=== PATIENT | female | born 1980 | race Caucasian/White ===

== ENCOUNTER 2016-11-03 13:28 | Emergency (ER) | payer BC, OTHER ==
--- NOTE | 2016-11-03 14:33 | ED ---
Upper Extremity HPI - General Chief Complaint: Extremity Injury, Upper Stated Complaint: Fall/Elbow pain Time Seen by Provider: 11/03/16 13:49 Source: patient, RN notes reviewed, old records reviewed Mode of arrival: ambulatory Limitations: no limitations - History of Present Illness Initial Comments: Physical 36-year-old female presents emergency room from a chief complaint of right elbow pain. Patient reports that she was dancing last night at a wedding and slipped and fell and hit her elbow on the dance floor. Patient states that since then she's had pain with pronation and supination. States that she's noticed some swelling. Patient reports that she is right-handed. Denies any shoulder upper arm pain. Denies any wrist or hand pain. Patient denies any peripheral paresthesias. Patient denies any recent fever, chills, shortness of breath, chest pain, back pain, abdominal pain, nausea vomiting, numbness or tingling, dysuria or hematuria, constipation or diarrhea, headaches or visual changes, or any other current symptoms - Related Data Home Medications Medication Instructions Recorded Confirmed Ferrous Sulfate [Feosol] 325 mg PO HS 11/03/16 11/03/16 Norethindrone [Taisha] 0.35 mg PO DAILY 11/03/16 11/03/16 Mnp-Fren-Lpyar Acid 1 cap PO HS 11/03/16 11/03/16 [-U Capsule (formulary)] Previous Rx's Medication Instructions Recorded Ibuprofen [Motrin] 600 mg PO Q8HR PRN #20 tab 11/03/16 traMADol HCL [Ultram] 50 mg PO Q6HR PRN #20 tab 11/03/16 Allergies Allergy/AdvReac Type Severity Reaction Status Date / Time No Known Allergies Allergy Verified 11/03/16 14:32 Review of Systems ROS Statement: Those systems with pertinent positive or pertinent negative responses have been documented in the HPI. ROS Other: All systems not noted in ROS Statement are negative. Past Medical History Past Medical History: No Reported History History of Any Multi-Drug Resistant Organisms: None Reported Past Surgical History: No Surgical Hx Reported Past Psychological History: No Psychological Hx Reported Smoking Status: Never smoker Past Alcohol Use History: Occasional Past Drug Use History: None Reported General Exam - General Exam Comments Initial Comments: Pleasant 36-year-old female. No acute distress. Limitations: no limitations General appearance: alert, in no apparent distress Head exam: Present: atraumatic, normocephalic, normal inspection Eye exam: Present: normal appearance, PERRL, EOMI. Absent: scleral icterus, conjunctival injection, periorbital swelling ENT exam: Present: normal exam, mucous membranes moist Neck exam: Present: normal inspection. Absent: tenderness, meningismus, lymphadenopathy Respiratory exam: Present: normal lung sounds bilaterally. Absent: respiratory distress, wheezes, rales, rhonchi, stridor Cardiovascular Exam: Present: regular rate, normal rhythm, normal heart sounds. Absent: systolic murmur, diastolic murmur, rubs, gallop, clicks GI/Abdominal exam: Present: soft, normal bowel sounds. Absent: distended, tenderness, guarding, rebound, rigid Extremities exam: Present: normal inspection, full ROM, normal capillary refill , other (Right elbow pain with flexion and extension, significant swelling. patient reprts clicking when pronationand supination.). Absent: tenderness, pedal edema, joint swelling, calf tenderness Back exam: Present: normal inspection Neurological exam: Present: alert, oriented X3, CN II-XII intact Psychiatric exam: Present: normal affect, normal mood Skin exam: Present: warm, dry, intact, normal color. Absent: rash Course Vital Signs 11/03/16 11/03/16 13:44 15:25 Temperature 99.4 F 98.0 F Pulse Rate 80 87 Respiratory 20 18 Rate Blood Pressure 119/80 140/70 O2 Sat by Pulse 100 98 Oximetry Procedures - Orthopedic Splinting/Casting Injury #1 Side: right Upper Extremity Injury Location: elbow Upper Extremity Immobilizer: sugar tong splint Medical Decision Making - Medical Decision Making Physical 36-year-old female presents emergency room from a chief complaint of right elbow pain. Patient reports that she was dancing last night at a wedding and slipped and fell and hit her elbow on the dance floor. Patient states that since then she's had pain with pronation and supination. States that she's noticed some swelling. Patient reports that she is right-handed. Denies any shoulder upper arm pain. Xrays are negative for any acute process, patient is still concerned with any movement of arm. Placed in sugar tong splint, and sling , advised to follow up with orthopedic physcian. Patient understands treatment plan and will comply. - Radiology Data Radiology results: report reviewed Xray negative for fracture. Disposition Clinical Impression: Sprain of elbow, right Disposition: HOME SELF-CARE Condition: Good Instructions: Elbow Sprain (ED) Additional Instructions: Patient advised to apply ice to the area. Remain in splint until seen by orthopedics. Take Motrin down of her pain. Return to emergency department if any alarming signs or symptoms occur. Prescriptions: Ibuprofen [Motrin] 600 mg PO Q8HR PRN #20 tab PRN Reason: Pain traMADol HCL [Ultram] 50 mg PO Q6HR PRN #20 tab PRN Reason: Pain Referrals: Di Hanna MD [Primary Care Provider] - 1-2 days Angel Alexis MD [STAFF PHYSICIAN] - 1-2 days Time of Disposition: 15:16
--- NOTE | 2016-11-03 14:52 | XR ---
EXAMINATION TYPE: XR elbow complete RT DATE OF EXAM: 11/03/2016 2:07 PM COMPARISON: NONE HISTORY: Pain and injury TECHNIQUE: 3 views FINDINGS: I see no fracture nor dislocation. Joint spaces are normal. There is no sign of elbow joint effusion. IMPRESSION: Normal right elbow.
[2016-11-03 15:26] VITALS: BP 140/70; PULSE 87; RESP 18; TEMP 98
== END 2016-11-03 15:25 | disposition home or self-care (01) ==
LOC: EC 13:28
DX: S53.401A Unspecified sprain of right elbow, initial encounter (principal); Z79.899 Other long term (current) drug therapy; W01.198A Fall on same level from slipping, tripping and stumbling with subsequent striking against other object, initial encounter; Y93.41 Activity, dancing
CPT/HCPCS: 99284

== ENCOUNTER → 2017-06-27 | Outpatient (CLI) | payer BC ==
--- NOTE | 2017-06-30 08:41 | MM ---
Reason for exam: screening (asymptomatic). Baseline mammogram. History: Patient had first child at age 34. Taking hormonal contraceptives for 16 years. Physical Findings: Nurse Summary: 1 x 1cm nodule in the left breast at 12 o'clock (nurse ts). MG Screening Mammo w CAD Bilateral CC and MLO view(s) were taken. The breast tissue is heterogeneously dense. This may lower the sensitivity of mammography. There is no discrete abnormality. These results were verbally communicated with the patient and result sheet given to the patient on 06/27/17. ASSESSMENT: Incomplete: need additional imaging evaluation, BI-RAD 0 RECOMMENDATION: Ultrasound of the left breast. (palpable by nurse) [facility] will attempt to contact patient to return for ultrasound.
--- NOTE | 2017-06-30 08:42 | USB ---
Reason for exam: additional evaluation requested from abnormal screening. History: Patient had first child at age 34. Taking hormonal contraceptives for 16 years. US Breast Workup Limited LT Left breast ultrasound demonstrates no cystic or solid lesion seen. These results were verbally communicated with the patient and result sheet given to the patient on 06/27/17. ASSESSMENT: Negative, BI-RAD 1 RECOMMENDATION: Routine screening mammogram of both breasts at age 39.
== END | disposition home or self-care (01) ==
LOC: RADMAMWWP 14:06
PROVIDERS: ATTEND Obstetrics & Gynecology
DX: Z12.31 Encounter for screening mammogram for malignant neoplasm of breast (principal); R92.8 Other abnormal and inconclusive findings on diagnostic imaging of breast
CPT/HCPCS: 77067

== ENCOUNTER → 2017-12-18 | Outpatient (CLI) | payer BC ==
--- NOTE | 2017-12-18 10:22 | US ---
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 GLAND SIZE: Right Lobe: 5.0 x 1.4 x 1.3 cm Overall Parenchyma: homogeneous Left Lobe: 4.6 x 2.0 x 1.1 cm Overall Parenchyma: homogeneous Isthmus Thickness: 0.2 cm NODULES RIGHT: # of nodules measured on right: 2 1. 0.3 X 0.4 x 0.2 cm hypoechoic mixed nodule at the upper pole with poorly defined margins. This nodule is wider than tall and shows no intranodular vascularity. 2. 0.3 X 0.3 x 0.2 cm hypoechoic mixed nodule at the mid pole with irregular margins. This nodule i s wider than tall and shows no intranodular vascularity. LEFT: # of nodules measured on left: 2 1. 0.2 X 0.2 x 0.1 cm hypoechoic mixed nodule at the upper pole with well-defined margins. This no dule is wider than tall and shows no intranodular vascularity. 2. 0.8 X 0.8 x 0.4 cm hypoechoic cystic nodule at the lower pole with well-defined margins. This no dule is wider than tall and shows no intranodular vascularity. ISTHMUS: # of nodules measured in the isthmus: 0 Bilateral neck scanned: nodule with appearance of lymph node is noted inferior to left thyroid = 0.8 x 0.4 x 0.5cm IMPRESSION: Bilateral subcentimeter thyroid nodules in a mildly enlarged thyroid gland. These nodules are too sma ll for fine-needle aspiration and therefore surveillance is recommended.
== END | disposition home or self-care (01) ==
LOC: RADUSWWP 06:57
PROVIDERS: ATTEND Family Medicine
DX: E04.2 Nontoxic multinodular goiter (principal)
CPT/HCPCS: 76536

== ENCOUNTER → 2018-08-03 | Outpatient (CLI) | payer OTHER ==
[2018-08-03 12:43] LABS: HCT 41.8 % (34.0-46.0); HGB 13.6 gm/dL (11.4-16.0); MCH 30.7 pg (25.0-35.0); MCHC 32.5 g/dL (31.0-37.0); MCV 94.4 fL (80.0-100.0); Mean Platelet Volume 7.2; Platelet Count 271 k/uL (150-450); RBC 4.42 m/uL (3.80-5.40); RDW 12.8 % (11.5-15.5); WBC 6.6 k/uL (3.8-10.6)
[2018-08-03 13:04] LABS: Anion Gap 8 mmol/L; Blood Urea Nitrogen 14 mg/dL (7-17); Carbon Dioxide 27 mmol/L (22-30); Chloride 106 mmol/L (98-107); Potassium 4.4 mmol/L (3.5-5.1); Sodium 141 mmol/L (137-145)
== END ==
LOC: LABPAT 11:19
PROVIDERS: ATTEND Internal Medicine Interventional Cardiology
DX: Z01.812 Encounter for preprocedural laboratory examination (principal); R07.9 Chest pain, unspecified
CPT/HCPCS: 36415; 80051; 82565; 84520; 85027

== ENCOUNTER → 2018-08-07 | Day surgery (SDC) | payer BC, OTHER ==
[2018-08-06 08:52] VITALS: BMI 23.3
[~2018-08-07] MED LIST: ALPRAZolam 0.25 MG TAB PO PRN; ALPRAZolam 0.5 MG TAB PO PRN; ASPIRIN 325 MG TAB PO STA; ATORVASTATIN 80 MG TAB PO STA; HEPARIN SODIUM 1,000 UN/ML (10ML VL) IV ONE; HEPARIN SODIUM 1,000 UN/ML (10ML VL) ONE; HYDROmorphone 2 MG/ML 1 ML SYRINGE IV ONE; IOPAMIDOL-370 150ML BTL INJ ONE; LIDOCAINE 1% INJ 10MG/ML (20 ML MDV) ONE; LIDOCAINE 1% INJ 10MG/ML (20 ML MDV) SQ ONE; MIDAZOLAM 2 MG/2 ML VIAL IVP ONE; NITROGLYCERIN 1000MCG/10ML SYRINGE INTRACORON ONE; NITROGLYCERIN SL TABS 0.4 MG TAB SUBLINGUAL PRN; ONDANSETRON 4 MG/2 ML VIAL ONE; RX INFO: IV CONTRAST WAS GIVEN 1 EACH MISC MISCELLANE PRN; SODIUM CHLORIDE 0.9% 1,000 ML IV SCH; SODIUM CHLORIDE 0.9% 1,000 ML in EMPTY BAG 1 BAG IV ONE; VERAPAMIL 2.5 MG/ML 2 ML AMP ONE; VERAPAMIL SYRINGE (5 MG/10 ML) INTRAARTER ONE
[2018-08-07 07:47] VITALS: TEMP 98.8
--- NOTE | 2018-08-07 11:12 | LTR ---
August 07, 2018 Re: Angel Jevon Dear Dr. Hall: Ms. Angel Escoto underwent a heart catheterization and that revealed normal coronaries. I want to thank you for allowing me to participate in her care and please do not hesitate to call if you have any question or concern. Sincerely, MD YANETH Tinajero / PEDRO: [id number] /
--- NOTE | 2018-08-07 11:12 | CC ---
CARDIAC CATHETERIZATION REPORT DATE OF SERVICE: August 07, 2018 PERFORMING PHYSICIAN: Chacorta Beltarn MD, bobbin loose end finder. PROCEDURE PERFORMED: 1. Selective right and left coronary angiogram. 2. Left heart catheterization. INDICATION: This is a 38-year-old female patient who continues to have chest discomfort in spite of normal stress test. Severe underlying coronary artery disease was suspected and the patient was brought to undergo a heart catheterization. APPROACH: 1. Right radial artery. 2. Right common femoral artery. COMPLICATION: None. LEVEL OF SEDATION: Moderate with sedation length of 28 minutes. PROCEDURE DESCRIPTION: After obtaining an informed consent, the patient was brought to cardiac labor supervisor. Initially the right radial artery was cannulated using micropuncture technique, the micropuncture wire passed easily then I placed a 6-Indonesian sheath in the right radial artery. After that I did give the patient 2 mg of verapamil IA and 6,000 units of heparin IV. I did selective right coronary angiogram using JR4 catheter. I attempted advancing the JL3.5, but I was unable and the patient developed severe spasm in the right arm and because of that, I decided to go from the right groin. The right common femoral artery was cannulated using micropuncture technique and a micropuncture wire passed easily then I placed a 6-Indonesian sheath in the right common femoral artery. I did selective left coronary angiogram using JL3.5 catheters. Left heart catheterization was performed using the JR4 catheter which flipped into the LV then I did pullback across aortic valve. The procedure was completed without any complication. SELECTIVE CORONARY ANGIOGRAM: 1. The right coronary artery is a large caliber vessel. It is a dominant vessel and angiographically normal. 2. The left main is angiographically normal. It bifurcates into the circumflex and left anterior descending artery. 3. Left circumflex is a large caliber vessel. It is a nondominant vessel and appeared to be angiographically normal and gives rise into 3 OM branches, they are angiographically normal. 4. The LAD: The proximal LAD is angiographically normal and gives rise into a medium- sized diagonal branch which seems to be normal. The mid LAD is normal and gives rise into a second diagonal branch which appeared to be normal and the LAD distally appeared to be normal. HEMODYNAMICS: The left ventricular end-diastolic pressure was 12 mmHg and no gradient was identified across the aortic valve. CONCLUSION: 1. Normal coronary angiogram. 2. Normal left ventricular end-diastolic pressure. POSTPROCEDURE MANAGEMENT: 1. Medical treatment. 2. Follow up with the patient. YANETH / IJN: [id number] /
[2018-08-07 11:44] VITALS: RESP 16
[2018-08-07 14:12] VITALS: BP 112/68; PULSE 54
== END ==
LOC: CATHCVL 07:23
PROVIDERS: ATTEND Internal Medicine Interventional Cardiology
DX: R07.89 Other chest pain (principal); Z86.32 Personal history of gestational diabetes; Z82.49 Family history of ischemic heart disease and other diseases of the circulatory system; Z79.3 Long term (current) use of hormonal contraceptives
CPT/HCPCS: 93458; 81025; C1894 ×2; C1769 ×2; C1760; J2250; J1170; J2405; J2001; J1644; Q9967

== ENCOUNTER 2019-03-16 11:56 | Emergency (ER) | payer OTHER ==
[2019-03-16 12:03] VITALS: TEMP 98.2
[2019-03-16] MEDS ORDERED: SODIUM CHLORIDE 0.9% 1,000 ML IV STA (12:31)
[2019-03-16] MEDS ORDERED: METOCLOPRAMIDE 5 MG/ML 2 ML VIAL IVP STA (12:31)
--- NOTE | 2019-03-16 12:46 | ED ---
Abdominal Pain HPI - General Chief Complaint: Abdominal Pain Stated Complaint: abdominal pain/nausea Time Seen by Provider: 03/16/19 12:06 Source: patient Mode of arrival: ambulatory Limitations: no limitations - History of Present Illness Initial Comments: Patient is a 39-year-old female presenting to the emergency Department with complaints of abdominal cramping, nausea, vomiting 1 day. Patient states she started having abdominal cramping yesterday and thought it was related to her period that just ended. Patient did take some ibuprofen and Midol which did not help with her symptoms. Patient states throughout the night she developed nausea and vomiting. Patient states that has now subsided with only some mild nausea however she still having abdominal cramping. Patient denies any abdominal surgeries and no other pertinent past medical history. Patient admits to regular bowel movements. Patient denies fever, chills, diarrhea. Patient states children also have similar viruses. She has no other complaints at this time. On arrival to ER, vital signs are stable. - Related Data Home Medications Medication Instructions Recorded Confirmed Multivitamins, Thera [Multivitamin 1 tab PO DAILY 08/06/18 03/16/19 (formulary)] Acetaminophen/Pamabrom [Midol 1 tab PO DAILY PRN 03/16/19 03/16/19 Caplet] Naproxen Sodium [Aleve] 440 mg PO DAILY PRN 03/16/19 03/16/19 Norethindrone [Taisha] 0.35 mg PO DAILY 03/16/19 03/16/19 Previous Rx's Medication Instructions Recorded Dicyclomine [Bentyl] 20 mg PO TID #20 tablet 03/16/19 Ondansetron Odt [Zofran Odt] 4 mg PO Q8HR PRN #10 tab 03/16/19 Allergies Allergy/AdvReac Type Severity Reaction Status Date / Time No Known Allergies Allergy Verified 03/16/19 12:08 Review of Systems ROS Statement: Those systems with pertinent positive or pertinent negative responses have been documented in the HPI. ROS Other: All systems not noted in ROS Statement are negative. Past Medical History Past Medical History: No Reported History History of Any Multi-Drug Resistant Organisms: None Reported Past Surgical History: No Surgical Hx Reported Past Psychological History: No Psychological Hx Reported Smoking Status: Never smoker General Exam - General Exam Comments Initial Comments: GENERAL: Well-appearing, well-nourished and in no acute distress. HEAD: Atraumatic, normocephalic. EYES: Pupils equal round and reactive to light, extraocular movements intact, sclera anicteric, conjunctiva are normal. ENT: TMs normal, nares patent, oropharynx clear without exudates. Moist mucous membranes. NECK: Normal range of motion, supple without lymphadenopathy or JVD. LUNGS: Breath sounds clear to auscultation bilaterally and equal. No wheezes rales or rhonchi. HEART: Regular rate and rhythm without murmurs, rubs or gallops. ABDOMEN: Mild generalized abdominal tenderness. No severe/sharp pain in any quadrants. Soft, normoactive bowel sounds. No guarding, no rebound. No masses appreciated. : Deferred EXTREMITIES: Normal range of motion, no pitting or edema. No clubbing or cyanosis. NEUROLOGICAL: Cranial nerves II through XII grossly intact. Normal speech, normal gait. PSYCH: Normal mood, normal affect. SKIN: Warm, Dry, normal turgor, no rashes or lesions noted. Limitations: no limitations Course Vital Signs 03/16/19 03/16/19 12:01 15:06 Temperature 98.2 F Pulse Rate 79 78 Respiratory 20 16 Rate Blood Pressure 132/67 110/68 O2 Sat by Pulse 100 Oximetry Medical Decision Making - Medical Decision Making Patient is a 39-year-old female presenting with gastroenteritis x 1 day. Generalized abdominal cramping, nausea and vomiting last night. Vital signs are stable, afebrile. She was given fluids and Reglan with improvement in symptoms. Discussed with patient this is most likely viral in nature and symptoms are self limited. Patient is stable for discharge at this time. Patient will be discharged with Zofran and Bentyl as needed for cramping. Patient is in agreement with this plan of care. Patient will follow-up with PCP as needed. Return parameters were discussed with the patient and she verbalized understanding. Case discussed with Dr. Palencia. - Lab Data Result diagrams: 03/16/19 13:20 03/16/19 13:20 Lab Results 03/16/19 03/16/19 03/16/19 Range/Units 12:30 12:30 13:20 WBC (3.8-10.6) k/uL RBC (3.80-5.40) m/uL Hgb (11.4-16.0) gm/dL Hct (34.0-46.0) % MCV (80.0-100.0) fL MCH (25.0-35.0) pg MCHC (31.0-37.0) g/dL RDW (11.5-15.5) % Plt Count (150-450) k/uL Neutrophils % % Lymphocytes % % Monocytes % % Eosinophils % % Basophils % % Neutrophils # (1.3-7.7) k/uL Lymphocytes # (1.0-4.8) k/uL Monocytes # (0-1.0) k/uL Eosinophils # (0-0.7) k/uL Basophils # (0-0.2) k/uL Sodium 138 (137-145) mmol/L Potassium 4.0 (3.5-5.1) mmol/L Chloride 104 (98-107) mmol/L Carbon Dioxide 23 (22-30) mmol/L Anion Gap 11 mmol/L BUN 8 (7-17) mg/dL Creatinine 0.68 (0.52-1.04) mg/dL Est GFR (CKD-EPI)AfAm >90 (>60 ml/min/1.73 sqM) Est GFR (CKD-EPI)NonAf >90 (>60 ml/min/1.73 sqM) Glucose 99 (74-99) mg/dL Calcium 9.3 (8.4-10.2) mg/dL Total Bilirubin 0.8 (0.2-1.3) mg/dL AST 20 (14-36) U/L ALT 16 (9-52) U/L Alkaline Phosphatase 61 (38-126) U/L Total Protein 7.6 (6.3-8.2) g/dL Albumin 4.4 (3.5-5.0) g/dL Amylase 43 (30-110) U/L Lipase 55 (23-300) U/L Urine Color Yellow Urine Appearance Clear (Clear) Urine pH 6.5 (5.0-8.0) Ur Specific Leonard 1.013 (1.001-1.035) Urine Protein Negative (Negative) Urine Glucose (UA) Negative (Negative) Urine Ketones Negative (Negative) Urine Blood Negative (Negative) Urine Nitrite Negative (Negative) Urine Bilirubin Negative (Negative) Urine Urobilinogen <2.0 (<2.0) mg/dL Ur Leukocyte Esterase Negative (Negative) Urine HCG, Qual Not Detected (Not Detectd) 03/16/19 Range/Units 13:20 WBC 10.7 H (3.8-10.6) k/uL RBC 4.40 (3.80-5.40) m/uL Hgb 13.3 (11.4-16.0) gm/dL Hct 41.1 (34.0-46.0) % MCV 93.5 (80.0-100.0) fL MCH 30.2 (25.0-35.0) pg MCHC 32.3 (31.0-37.0) g/dL RDW 12.1 (11.5-15.5) % Plt Count 306 (150-450) k/uL Neutrophils % 74 % Lymphocytes % 17 % Monocytes % 5 % Eosinophils % 1 % Basophils % 1 % Neutrophils # 8.0 H (1.3-7.7) k/uL Lymphocytes # 1.8 (1.0-4.8) k/uL Monocytes # 0.6 (0-1.0) k/uL Eosinophils # 0.2 (0-0.7) k/uL Basophils # 0.1 (0-0.2) k/uL Sodium (137-145) mmol/L Potassium (3.5-5.1) mmol/L Chloride (98-107) mmol/L Carbon Dioxide (22-30) mmol/L Anion Gap mmol/L BUN (7-17) mg/dL Creatinine (0.52-1.04) mg/dL Est GFR (CKD-EPI)AfAm (>60 ml/min/1.73 sqM) Est GFR (CKD-EPI)NonAf (>60 ml/min/1.73 sqM) Glucose (74-99) mg/dL Calcium (8.4-10.2) mg/dL Total Bilirubin (0.2-1.3) mg/dL AST (14-36) U/L ALT (9-52) U/L Alkaline Phosphatase (38-126) U/L Total Protein (6.3-8.2) g/dL Albumin (3.5-5.0) g/dL Amylase (30-110) U/L Lipase (23-300) U/L Urine Color Urine Appearance (Clear) Urine pH (5.0-8.0) Ur Specific Leonard (1.001-1.035) Urine Protein (Negative) Urine Glucose (UA) (Negative) Urine Ketones (Negative) Urine Blood (Negative) Urine Nitrite (Negative) Urine Bilirubin (Negative) Urine Urobilinogen (<2.0) mg/dL Ur Leukocyte Esterase (Negative) Urine HCG, Qual (Not Detectd) Disposition Clinical Impression: Gastroenteritis, Abdominal pain, Nausea & vomiting Disposition: HOME SELF-CARE Condition: Stable Instructions (If sedation given, give patient instructions): Gastroenteritis (ED) Additional Instructions: Please return to the Emergency Department if symptoms worsen or any other concerns. Follow-up with PCP as needed. Prescriptions: Dicyclomine [Bentyl] 20 mg PO TID #20 tablet Ondansetron Odt [Zofran Odt] 4 mg PO Q8HR PRN #10 tab PRN Reason: Nausea Is patient prescribed a controlled substance at d/c from ED?: No Referrals: Loyd Hall MD [Medical Doctor] - 1-2 days
[2019-03-16 13:14] LABS: Appearance,Urine Clear (Clear); Bilirubin,Urine Negative (Negative); Blood,Urine Negative (Negative); Color,Urine Yellow; Glucose,Urine (UA) Negative (Negative); Ketones,Urine Negative (Negative); Leukocyte Esterase,Urine Negative (Negative); Nitrite,Urine Negative (Negative); PH, Urine 6.5 (5.0-8.0); Protein,Urine Negative (Negative); Specific Gravity,Urine 1.013 (1.001-1.035); Urobilinogen,Urine <2.0 mg/dL (<2.0)
[2019-03-16 13:47] LABS: Basophils # (A) 0.1 k/uL (0-0.2); Basophils % (A) 1 %; Eosinophils # (A) 0.2 k/uL (0-0.7); Eosinophils % (A) 1 %; HCT 41.1 % (34.0-46.0); HGB 13.3 gm/dL (11.4-16.0); Lymphocytes # (A) 1.8 k/uL (1.0-4.8); Lymphocytes % (A) 17 %; MCH 30.2 pg (25.0-35.0); MCHC 32.3 g/dL (31.0-37.0); MCV 93.5 fL (80.0-100.0); Mean Platelet Volume 6.6; Monocytes # (A) 0.6 k/uL (0-1.0); Monocytes % (A) 5 %; Neutrophils % (A) 74 %; Platelet Count 306 k/uL (150-450); RDW 12.1 % (11.5-15.5); WBC 10.7 k/uL (3.8-10.6)
[2019-03-16 13:57] LABS: ALT 16 U/L (9-52); AST 20 U/L (14-36); African American GFR (CKD) >90 (>60 ml/min/1.73 sqM); Albumin 4.4 g/dL (3.5-5.0); Alkaline Phosphatase 61 U/L (38-126); Amylase 43 U/L (30-110); Blood Urea Nitrogen 8 mg/dL (7-17); Calcium 9.3 mg/dL (8.4-10.2); Carbon Dioxide 23 mmol/L (22-30); Glucose 99 mg/dL (74-99); Sodium 138 mmol/L (137-145); Total Bilirubin 0.8 mg/dL (0.2-1.3); Total Protein 7.6 g/dL (6.3-8.2)
[2019-03-16 14:53] LABS: Anion Gap 11 mmol/L; Chloride 104 mmol/L (98-107)
[2019-03-16 15:07] VITALS: BP 110/68; PULSE 78; RESP 16
== END 2019-03-16 15:16 | disposition home or self-care (01) ==
LOC: EC 11:56
DX: K52.9 Noninfective gastroenteritis and colitis, unspecified (principal); Z79.3 Long term (current) use of hormonal contraceptives
CPT/HCPCS: 36415; 80053; 82150; 83690; 85025; 81003; 81025; 99284; 96374; 96361 ×2; J2765

== ENCOUNTER → 2022-01-01 | Outpatient (CLI) | payer OTHER ==
--- NOTE | 2022-01-08 08:08 | MM ---
Reason for Exam: Screening (asymptomatic). Last mammogram was performed 1 year(s) and 9 month(s) ago. Patient History: Menarche at age 11. First Full-Term at age 34. Late child-bearing (after 30). Currently using Hormonal Contraceptives, for 16 years. Last menstrual period: 12/12/2021 Risk Values: Natalia 5 year model risk: 0.9%. NCI Lifetime model risk: 13.4%. Prior Study Comparison: 06/27/2017 Bilateral Screening Mammogram, [facility]. Tissue Density: The breast tissue is extremely dense which could obscure a lesion on mammography. Findings: Analyzed By CAD. There is no suspicious group of microcalcifications or new suspicious mass in either breast. Overall Assessment: Negative, BI-RAD 1 Management: Screening Mammogram of both breasts in 1 year. A clinical breast exam by your physician is recommended on an annual basis and results should be correlated with mammographic findings. Electronically signed and approved by: Chalino Aguilar M.D. Radiologis
== END | disposition home or self-care (01) ==
LOC: RADMAMWWP 11:02
PROVIDERS: ATTEND Obstetrics & Gynecology
DX: Z12.31 Encounter for screening mammogram for malignant neoplasm of breast (principal)
CPT/HCPCS: 77063; 77067

== ENCOUNTER → 2023-02-18 | Outpatient (CLI) | payer OTHER ==
--- NOTE | 2023-02-20 09:29 | MM ---
Reason for Exam: Screening (asymptomatic). Last mammogram was performed 1 year(s) and 1 month(s) ago. Patient History: Menarche at age 11. First Full-Term at age 34. Late child-bearing (after 30). Currently using Hormonal Contraceptives, for 16 years. Last menstrual period: 02/03/2023 Risk Values: Natalia 5 year model risk: 1.0%. NCI Lifetime model risk: 13.2%. Prior Study Comparison: 06/27/2017 Bilateral Screening Mammogram, [facility]. 04/12/2020 Bilateral MG 3D screening mammo w/cad, [facility]. 01/01/2022 Bilateral MG 3D screening mammo w/cad, [facility]. Tissue Density: The breast tissue is extremely dense which could obscure a lesion on mammography. Findings: Analyzed By CAD. There is no suspicious group of microcalcifications or new suspicious mass in either breast. Overall Assessment: Negative, BI-RAD 1 Management: Screening Mammogram of both breasts in 1 year. . Patient should continue monthly self-breast exams. A clinical breast exam by your physician is recommended on an annual basis. This exam should not preclude additional follow-up of suspicious palpable abnormalities. Note on Natalia scores and lifetime risk: 1. A Natalia score greater than 3% is considered moderate risk. If this is the case, consider specialist referral to assess eligibility for a risk reducing agent. 2. If overall lifetime risk for the development of breast cancer is 20% or higher, the patient may qualify for future screening with alternating mammogram and breast MRI. Electronically signed and approved by: Chalino Aguilar M.D. Radiologis
== END | disposition home or self-care (01) ==
LOC: RADMAMWWP 13:32
PROVIDERS: ATTEND Obstetrics & Gynecology
DX: Z12.31 Encounter for screening mammogram for malignant neoplasm of breast (principal)
CPT/HCPCS: 77063; 77067

== ENCOUNTER → 2023-04-29 | Outpatient (CLI) | payer OTHER ==
[2023-04-29 16:00] LABS: Basophils # (A) 0.06 X 10*3/uL (0.00-0.10); Basophils % (A) 0.9 %; Eosinophils # (A) 0.47 X 10*3/uL (0.04-0.35); Eosinophils % (A) 6.8 %; HCT 43.1 % (37.2-46.3); HGB 14.1 g/dL (12.0-15.0); Lymphocytes # (A) 2.11 X 10*3/uL (0.90-5.00); Lymphocytes % (A) 30.4 %; MCH 31.1 pg (27.0-32.0); MCHC 32.7 g/dL (32.0-37.0); MCV 94.9 FL (80.0-97.0); Mean Platelet Volume 10.8 FL (9.5-12.2); Monocytes # (A) 0.68 X 10*3/uL (0.20-1.00); Monocytes % (A) 9.8 %; NRBC Per 100 WBC 0 X 10*3/uL (0.00-0.01); Neutrophils # (A) 3.61 X 10*3/uL (1.80-7.70); Neutrophils % (A) 51.8 %; Platelet Count 306 X 10*3/uL (140-440); RBC 4.54 X 10*6/uL (4.10-5.20); RDW 12.9 % (11.5-14.5); WBC 6.95 X 10*3/uL (4.50-10.00)
[2023-04-29 16:01] LABS: Chol/HDL Ratio 4.48 Ratio; LDL Cholesterol,Calculated 166.9 mg/dL (0.0-131.0)
[2023-04-29 16:05] LABS: ALT 36 U/L (8-44); AST 29 U/L (13-35); Albumin 4.4 g/dL (3.8-4.9); Albumin/Globulin Ratio 1.76 Ratio (1.60-3.17); Alkaline Phosphatase 52 U/L (41-126); BUN/Creat Ratio 14.25 Ratio (12.00-20.00); Blood Urea Nitrogen 11.4 mg/dL (9.0-27.0); Calcium 9.7 mg/dL (8.7-10.3); Carbon Dioxide 26.3 mmol/L (21.6-31.8); Chloride 100 mmol/L (96-109); Globulin 2.5 g/dL (1.6-3.3); Glucose 105 mg/dL (70-110); Potassium 4.2 mmol/L (3.5-5.5); Sodium 144 mmol/L (135-145); Total Bilirubin 0.5 mg/dL (0.3-1.2); Total Protein 6.9 g/dL (6.2-8.2)
== END | disposition home or self-care (01) ==
LOC: LABWHC1 08:46
PROVIDERS: ATTEND Family Medicine
DX: Z00.00 Encounter for general adult medical examination without abnormal findings (principal); Z13.220 Encounter for screening for lipoid disorders; Z13.29 Encounter for screening for other suspected endocrine disorder; Z86.32 Personal history of gestational diabetes
CPT/HCPCS: 36415; 80053; 80061; 83036; 84443; 85025

== ENCOUNTER → 2023-05-19 | Outpatient (CLI) | payer OTHER ==
--- NOTE | 2023-05-19 08:41 | US ---
EXAMINATION TYPE: US thyroid st tissue head/neck DATE OF EXAM: 05/19/2023 COMPARISON: US CLINICAL INDICATION: Female, 43 years old with history of R22.0 LOCALIZED SWELLING, MASS AND LUMP, HE AD; Pt states F/U- prior in 2018 GLAND SIZE: Right Lobe: 5.4 x 1.4 x 1.8 cm Overall Parenchyma: homogeneous Left Lobe: 4.2 x 1.4 x 2.0 cm Overall Parenchyma: homogeneous Isthmus Thickness: 0.3 cm NODULES RIGHT: # of nodules measured on right: 1 1. 3mm hypoechoic nodule, almost too small to characterize Prior size: 4mm LEFT: # of nodules measured on left: 1 1. 1.1 X 0.7 x 0.9 cm, mid, mixed cystic and solid, hypoechoic nodule, which is wider than tall, wi th smooth margins, without echogenic foci. Prior size: 0.8 x 0.4 x 0.8 cm ISTHMUS: # of nodules measured in the isthmus: 0 Bilateral neck scanned, no evidence of lymphadenopathy. Nodule left lobe slightly increased from prio r. IMPRESSION: Mildly suspicious nodule left lobe thyroid. Consider follow-up in one year. 2017 ACR TI-RADS LEVEL: TR-RADS 3 - Mildly Suspicious: Follow if > 1.5 cm, FNA if > 2.5 cm *Highest TI-RADS level nodule reported
--- NOTE | 2023-05-19 08:43 | US ---
EXAMINATION TYPE: US gallbladder DATE OF EXAM: 05/19/2023 COMPARISON: NONE CLINICAL INDICATION: Female, 43 years old with history of R22.0 LOCALIZED SWELLING, MASS AND LUMP, HE AD; Pt states epigastric/RUQ pain on/off x couple of months TECHNIQUE: Multiple sonographic images of the right upper quadrant are obtained. FINDINGS: EXAM MEASUREMENTS: Liver Length: 16.9 cm Gallbladder Wall: 0.3 cm CBD: 0.4 cm Right Kidney: 10.1 x 4.2 x 4.5 cm BEAD MAKER NOTES: Pancreas: Obscured by bowel gas Liver: Heterogeneous, difficult to penetrate Gallbladder: wnl Evidence for sonographic Bledsoe's sign: No CBD: wnl Right Kidney: wnl, lower pole gassed out IMPRESSION: 1. Mild fatty infiltration of the liver. Mild hepatomegaly is present.
== END | disposition home or self-care (01) ==
LOC: RADUSWWP 06:46
PROVIDERS: ATTEND Family Medicine
DX: K76.0 Fatty (change of) liver, not elsewhere classified (principal); E04.2 Nontoxic multinodular goiter; R22.0 Localized swelling, mass and lump, head; R16.0 Hepatomegaly, not elsewhere classified
CPT/HCPCS: 76536; 76705

== ENCOUNTER → 2024-03-15 | Outpatient (CLI) | payer OTHER ==
--- NOTE | 2024-03-15 08:06 | MM ---
Reason for Exam: Clinical finding. Last mammogram was performed 1 year(s) and 1 month(s) ago. Patient History: Menarche at age 11. First Full-Term at age 34. Late child-bearing (after 29). Currently using Hormonal Contraceptives, for 16 years. Last menstrual period: 02/28/2024 Risk Values: Natalia 5 year model risk: 1.1%. NCI Lifetime model risk: 13.0%. Prior Study Comparison: 06/27/2017 Bilateral Screening Mammogram, [facility]. 06/27/2017 Left Diagnostic Ultrasound, [facility]. 04/12/2020 Bilateral MG 3D screening mammo w/cad, [facility]. 01/01/2022 Bilateral MG 3D screening mammo w/cad, [facility]. 02/18/2023 Bilateral MG 3D screening mammo w/cad, [facility]. Tissue Density: The breasts are heterogeneously dense, which may obscure small masses. Findings: Analyzed By CAD. 2 masses are seen in the left breast one near the area of palpable abnormality measuring 24 x 22 mm posterior nipple line approximately 2.9 cm from the nipple and the other in the upper outer aspect measuring 22 x 18 mm 7.8 cm from the nipple on MLO view. Overall Assessment: Incomplete: need additional imaging evaluation, BI-RAD 0 Management: Diagnostic Breast Ultrasound of the left breast. Results were given to the patient verbally at the time of exam. Patient should continue monthly self-breast exams. A clinical breast exam by your physician is recommended on an annual basis. This exam should not preclude additional follow-up of suspicious palpable abnormalities. Note on Natalia scores and lifetime risk: 1. A Natalia score greater than 3% is considered moderate risk. If this is the case, consider specialist referral to assess eligibility for a risk reducing agent. 2. If overall lifetime risk for the development of breast cancer is 20% or higher, the patient may qualify for future screening with alternating mammogram and breast MRI. [facility], , 03/15/2024 7:51 AM. Electronically signed and approved by: Julius Garcia DO
--- NOTE | 2024-03-15 08:25 | USB ---
Reason for Exam: Clinical finding. Patient History: Menarche at age 11. First Full-Term at age 34. Late child-bearing (after 29). Currently using Hormonal Contraceptives, for 16 years. Risk Values: Natalia 5 year model risk: 1.1%. NCI Lifetime model risk: 13.0%. Technique: Method: Targeted. Prior Study Comparison: 04/12/2020 Bilateral MG 3D screening mammo w/cad, [facility]. 01/01/2022 Bilateral MG 3D screening mammo w/cad, [facility]. 02/18/2023 Bilateral MG 3D screening mammo w/cad, [facility]. Findings: The upper outer quadrant of the left breast, the axilla of the left breast and the retroareolar of the left breast were scanned. Technique utilized:US breast limited LT Image; Ultrasound imaging of: All 4 quadrants, the retroareolar region and axilla. Is a simple appearing cysts correlates with palpable abnormality measuring up to 2.4 cm in the retroareolar region. Additional cyst at 2:00 7 cm and measuring up to 2.5 cm also present. Few dilated ducts present at the left nipple. Overall Assessment: Benign, BI-RAD 2 Management: Screening Mammogram of both breasts in 1 year. A clinical breast exam by your physician is recommended on an annual basis and results should be correlated with mammographic findings. This exam should not preclude additional follow-up of suspicious palpable abnormalities. Results were given to the patient verbally at the time of exam. [facility], , 03/15/2024 8:20 AM. Electronically signed and approved by: Julius Garcia DO
== END | disposition home or self-care (01) ==
LOC: RADMAMWWP 07:27
PROVIDERS: ATTEND Obstetrics & Gynecology
CPT/HCPCS: 77062; 77066

== ENCOUNTER → 2024-10-12 | Outpatient (CLI) | payer OTHER ==
[2024-10-12 15:56] LABS: Basophils # (A) 0.09 X 10*3/uL (0.00-0.10); Basophils % (A) 1.1 %; Eosinophils # (A) 0.36 X 10*3/uL (0.04-0.35); Eosinophils % (A) 4.4 %; HCT 41.6 % (37.2-46.3); HGB 13.7 g/dL (12.0-15.0); Lymphocytes # (A) 2.28 X 10*3/uL (0.90-5.00); Lymphocytes % (A) 27.6 %; MCH 31.7 pg (27.0-32.0); MCHC 32.9 g/dL (32.0-37.0); MCV 96.3 FL (80.0-97.0); Mean Platelet Volume 10.9 FL (9.5-12.2); Monocytes # (A) 0.92 X 10*3/uL (0.20-1.00); Monocytes % (A) 11.1 %; NRBC Per 100 WBC 0 X 10*3/uL (0.00-0.01); Neutrophils # (A) 4.59 X 10*3/uL (1.80-7.70); Neutrophils % (A) 55.4 %; Platelet Count 324 X 10*3/uL (140-440); RBC 4.32 X 10*6/uL (4.10-5.20); RDW 12.5 % (11.5-14.5); WBC 8.27 X 10*3/uL (4.50-10.00)
[2024-10-12 16:00] LABS: BUN/Creat Ratio 15.14 Ratio (12.00-20.00); Blood Urea Nitrogen 10.6 mg/dL (9.0-27.0); Chol/HDL Ratio 4.62 Ratio; Glucose 100 mg/dL (70-110); LDL Cholesterol,Calculated 158.6 mg/dL (0.0-131.0)
[2024-10-12 16:01] LABS: ALT 46 U/L (8-44); AST 35 U/L (13-35); Albumin 4.6 g/dL (3.8-4.9); Albumin/Globulin Ratio 1.59 Ratio (1.60-3.17); Alkaline Phosphatase 72 U/L (41-126); Calcium 9.6 mg/dL (8.7-10.3); Carbon Dioxide 21.3 mmol/L (21.6-31.8); Chloride 107 mmol/L (96-109); Globulin 2.9 g/dL (1.6-3.3); Potassium 4.2 mmol/L (3.5-5.5); Sodium 142 mmol/L (135-145); Total Bilirubin 0.9 mg/dL (0.3-1.2); Total Protein 7.5 g/dL (6.2-8.2)
== END | disposition home or self-care (01) ==
LOC: LABWHC1 09:48
PROVIDERS: ATTEND Family Medicine
DX: Z00.00 Encounter for general adult medical examination without abnormal findings (principal); Z13.220 Encounter for screening for lipoid disorders; Z13.29 Encounter for screening for other suspected endocrine disorder; E04.1 Nontoxic single thyroid nodule
CPT/HCPCS: 36415; 80053; 80061; 84443; 85025